=== PATIENT | female | born 1980 | race Caucasian/White ===

== ENCOUNTER → 2016-11-25 | Outpatient (CLI) | payer BC ==
[~2016-11-25] MED LIST: IBUP-1050 PO; NORGTAB3 PO; PANT40TA PO; POLY335025 PO
--- NOTE | 2016-11-25 15:07 | DIAGNOSTIC IMAGING REPORT ---
LEFT ANKLE MIN 3 VIEWS ROUTINE CLINICAL HISTORY: Left ankle pain following injury. COMPARISON: None FINDINGS: Alignment of left ankle is anatomic. Talar dome is intact. No acute fracture of the distal left tibia or fibula is identified. A 6 mm ossific fragment along the lateral aspect of the distal calcaneus is noted. There is also a punctate ossific fragment along the dorsal aspect of the proximal navicular. IMPRESSION: 1. 6 mm avulsed bone fragment along the lateral distal calcaneus which is likely acute. 2. Tiny age indeterminate avulsion fracture of the dorsal navicular. 3. No acute fracture of the distal left tibia or fibula. Electronically signed by: Jose Grimm M.D. 11/25/2016 3:05 PM Dictated Date/Time: 11/25/2016 3:03 PM
--- NOTE | 2016-11-25 15:09 | DIAGNOSTIC IMAGING REPORT ---
LEFT FOOT MIN 3 VIEWS ROUTINE CLINICAL HISTORY: Left foot pain. TRAUMA COMPARISON: None DISCUSSION: There is a small corticated density projected over the dorsal aspect of the navicular. On the oblique views a corticated density projected lateral to the cuboid. On the AP view, there is a 3 mm density projected adjacent to the anterolateral aspect of the calcaneus. Is unclear whether this reflects an ossicle or tiny chip fracture. Please correlate with the patient's site of pain. There is no conventional radiographic evidence of a Lisfranc fracture IMPRESSION: Chip fracture versus ossicle adjacent to the anterolateral aspect of the calcaneus. Please correlate with the patient's site of pain. Electronically signed by: Dominick Quinn M.D. 11/25/2016 3:07 PM Dictated Date/Time: 11/25/2016 3:04 PM
== END | disposition home or self-care (01) ==
LOC: C.RAD1850 14:49
PROVIDERS: ATTEND Student in an Organized Health Care Education/Training Program
DX: S92.002A Unspecified fracture of left calcaneus, initial encounter for closed fracture (principal); X58.XXXA Exposure to other specified factors, initial encounter

== ENCOUNTER → 2016-12-09 | Outpatient (CLI) | payer BC | END | disposition home or self-care (01) | LOC: C.PAPS 14:18 | PROVIDERS: ATTEND Obstetrics & Gynecology | DX: Z01.419 Encounter for gynecological examination (general) (routine) without abnormal findings (principal) ==

== ENCOUNTER → 2016-12-09 | Outpatient (CLI) | payer BC ==
--- NOTE | 2016-12-09 12:50 | DIAGNOSTIC IMAGING REPORT ---
LEFT FOOT MIN 3 VIEWS CLINICAL HISTORY: Left foot pain. Healing fracture. COMPARISON: 11/25/2016 DISCUSSION: On the lateral view, there is a stable tiny bony density located adjacent the dorsal aspect of the navicular. There is subtle irregularity involving the base the cuboid, a nondisplaced fracture cannot be excluded. There is a small bony fragment which appears to arise from the distal lateral aspect of the calcaneus. IMPRESSION: 1. Suspected small chip fracture arising from the dorsal lateral aspect of the calcaneus 2. Subtle lucency within the proximal aspect of the cuboid. A nondisplaced cuboid fracture cannot be excluded Electronically signed by: Dominick Quinn M.D. 12/09/2016 12:48 PM Dictated Date/Time: 12/09/2016 12:45 PM
== END | disposition home or self-care (01) ==
LOC: C.RDSM 11:13
PROVIDERS: ATTEND Physical Medicine & Rehabilitation Sports Medicine
DX: M79.672 Pain in left foot (principal); R93.7 Abnormal findings on diagnostic imaging of other parts of musculoskeletal system

== ENCOUNTER → 2017-08-02 | Outpatient (CLI) | payer BC ==
--- NOTE | 2017-08-02 17:21 | DIAGNOSTIC IMAGING REPORT ---
LEFT ELBOW 2 VIEWS CLINICAL HISTORY: 37 years-old Female presenting with LEFT ELBOW PAIN. TECHNIQUE: 2 views of the left elbow were obtained. COMPARISON: None. FINDINGS: Diagnostic sensitivity is limited by lateral view only. Elbow joint grossly congruent. No elbow joint effusion. No gross evidence of displaced fracture or malalignment. IMPRESSION: Allowing for the lateral view only, no acute osseous injury of the left elbow is evident. Electronically signed by: Vincent Dhillon M.D. 08/02/2017 5:20 PM Dictated Date/Time: 08/02/2017 5:19 PM
== END | disposition home or self-care (01) ==
LOC: C.RDSM 17:15
PROVIDERS: ATTEND Physician Assistant
DX: M25.522 Pain in left elbow (principal)

== ENCOUNTER → 2017-08-11 | Outpatient (CLI) | payer BC | END | disposition home or self-care (01) | LOC: C.RDSM 13:43 | PROVIDERS: ATTEND Physician Assistant | DX: M25.522 Pain in left elbow (principal) ==

== ENCOUNTER 2018-04-02 14:25 | Emergency (ER) | payer BC ==
[~2018-04-02] VITALS: Ht 165.1 cm; Wt 64.1 kg
[2018-04-02 14:27] VITALS: TEMP 37; Ht 165.1 cm; Wt 64.1 kg
[2018-04-02] MEDS ORDERED: SODIUM CHLORIDE 0.9% 1000ML 1,000 ML IV STA (14:36)
[2018-04-02] MEDS ORDERED: MoRPHine SULFATE 4 MG/ML 1 ML CARP\\VIAL IV STA (14:36)
[2018-04-02] MEDS ORDERED: ONDANSETRON INJ 2 MG/ML 2 ML VIAL IV STA (14:36)
[2018-04-02] MEDS ORDERED: GI COCKTAIL PO STA (14:37)
[2018-04-02] MEDS ORDERED: LIDOCAINE HCL 2% VISC SOLN 20 ML UDC ONE (14:42)
[2018-04-02] MEDS ORDERED: ALUMINUM/MAGNESIUM SUSP 30 ML UDC ONE (14:42)
[2018-04-02 15:16] LABS: EOS % 0.1 %; EOS ABS # 0.01 K/uL (0-0.5); HEMATOCRIT 42.1 % (37-47); HEMOGLOBIN 14.7 g/dL (12.0-16.0); IG# 0.01 K/uL (0.00-0.02); LYMPH % 6.6 %; MEAN CELL VOLUME 91.5 fL (80-100); MEAN CORPUSCULAR HGB CONC 34.9 g/dl (32-36); MEAN PLATELET VOLUME 9.2 fL (7.4-10.4); MONO % 4.3 %; MONO ABS # 0.33 K/uL (0.11-0.59); NEUT % 88.9 %; NEUT ABS # 6.75 K/uL (1.4-6.5); PLATELET COUNT 190 K/uL (130-400); RED CELL DISTRIBUTION WIDTH CV 12.3 % (11.5-14.5); RED CELL DISTRIBUTION WIDTH SD 41.2 fL (36.4-46.3)
--- NOTE | 2018-04-02 15:29 | DIAGNOSTIC IMAGING REPORT ---
BILIARY ULTRASOUND CLINICAL HISTORY: Right upper quadrant abdominal pain COMPARISON STUDY: 04/19/2015 FINDINGS: The pancreas appears sonographically normal. The liver appears sonographically normal. The gallbladder appears sonographically normal. There is no ductal dilatation. The common bile duct measures 2 mm. There is no right-sided hydronephrosis. IMPRESSION: Normal biliary ultrasound. Electronically signed by: Dominick Quinn M.D. 04/02/2018 3:28 PM Dictated Date/Time: 04/02/2018 3:26 PM
[2018-04-02 15:42] LABS: ALBUMIN 3.4 gm/dl (3.4-5.0); ALKALINE PHOSPHATASE 34 U/L (45-117); ALT/SGPT 14 U/L (12-78); AST/SGOT 18 U/L (15-37); BLOOD UREA NITROGEN 16 mg/dl (7-18); CALCIUM 8.3 mg/dl (8.5-10.1); CARBON DIOXIDE 28 mmol/L (21-32); CREATININE 0.79 mg/dl (0.60-1.20); GLUCOSE 86 mg/dl (70-99); LIPASE 83 U/L (73-393); SODIUM 137 mmol/L (136-145); TOTAL PROTEIN 6.7 gm/dl (6.4-8.2)
[2018-04-02 17:08] VITALS: BP 86/62; PULSE 87; O2SAT 97
--- NOTE | 2018-04-02 21:17 | EMERGENCY ROOM VISIT NOTE ---
History Report prepared by Scribe: Sylvie Elizalde Under the Supervision of: Dr. Willi Henderson D.O. First contact with patient: 14:29 Chief Complaint: ABDOMINAL PAIN Stated Complaint: GALLBLADDER PAIN History of Present Illness The patient is a 37 year old female who presents to the Emergency Room with complaints of worsening right sided abdominal pain since last night. She rates her discomfort as a 6/10 in severity. She states the pain radiates around to her lower back. She was also nauseous and vomited last night. She still has both her gallbladder and appendix but notes she has experienced issues with her gallbladder in the past. She saw her Underwriting Consultant this past , and notes she has previously undergone HIDA scans and ultrasounds that have come back unremarkable. She has also tried cutting back on fatty foods to minimize her abdominal discomfort, but admits she ate barbecue chicken and baked beans yesterday. Her LMP was 3 weeks ago and normal. Her last BM was this morning and normal. She does admit to a headache. Pt denies change in vision, fevers, chest pain, shortness of breath, diarrhea, pain with urination, swelling of the legs and melena. She has no history of kidney stones. Source of History: patient Onset: last night Position: abdomen Symptom Intensity: 6/10 Timing: worsening Associated Symptoms: + headache, + nausea, + vomiting, No fevers, No chest pain, No SOB, No melena, No diarrhea, No urinary symptoms Review of Systems See HPI for pertinent positives & negatives. A total of 10 systems reviewed and were otherwise negative. Past Medical & Surgical Medical Problems: (1) GERD (gastroesophageal reflux disease) Social History Smoking Status: Never Smoker Alcohol Use: occasionally Drug Use: none Marital Status: Housing Status: lives with family Occupation Status: employed Current/Historical Medications Scheduled Norgestimate-Ethinyl Estradiol (Tri-Sprintec), 1 TAB PO DAILY Polyethylene Glycol 3350 (Miralax), 1 PKT PO DAILY Scheduled PRN Ibuprofen (Advil), 200-600 MG PO Q4H PRN for Pain Allergies Coded Allergies: Penicillins (Verified Allergy, Unknown, "DON'T REMEMBER REACTION" HAD WHEN YOUNGER, 04/02/18) Physical Exam Vital Signs Date Time Temp Pulse Resp B/P (MAP) Pulse Ox O2 Delivery O2 Flow Rate FiO2 5/19/18 17:08 87 86/62 97 04/02/18 15:47 84 95/54 96 Room Air 04/02/18 14:27 37.0 92 16 102/78 98 Room Air Physical Exam GENERAL: Sitting up in bed, alert, well appearing, well nourished, holding epigastric region, in minimal distress, non-toxic EYE EXAM: normal conjunctiva. OROPHARYNX: no exudate, no erythema, lips, buccal mucosa, and tongue normal and mucous membranes are moist NECK: supple, no nuchal rigidity, no adenopathy, non-tender LUNGS: Clear to auscultation. Normal chest wall mechanics HEART: no murmurs, S1 normal and S2 normal ABDOMEN: abdomen soft, minimal tenderness to palpation in epigastrium/RUQ, normo -active bowel sounds, no masses, no rebound or guarding. BACK: Back is symmetrical on inspection and there is no deformity, no midline tenderness, no CVA tenderness. SKIN: no rashes and no bruising UPPER EXTREMITIES: upper extremities are grossly normal. LOWER EXTREMITIES: No pitting edema. NEURO EXAM: Normal sensorium, cranial nerves II-XII grossly intact, normal speech, no gross weakness of arms, no gross weakness of legs. Gross sensation intact. Medical Decision & Procedures ER Provider Diagnostic Interpretation: Radiology results as stated below per my review and the radiologist's interpretation: BILIARY ULTRASOUND CLINICAL HISTORY: Right upper quadrant abdominal pain COMPARISON STUDY: 04/19/2015 FINDINGS: The pancreas appears sonographically normal. The liver appears sonographically normal. The gallbladder appears sonographically normal. There is no ductal dilatation. The common bile duct measures 2 mm. There is no right-sided hydronephrosis. IMPRESSION: Normal biliary ultrasound. Electronically signed by: Dominick Quinn M.D. 04/02/2018 3:28 PM Laboratory Results 04/02/18 14:50 Red Blood Count 4.60, Mean Corpuscular Volume 91.5, Mean Corpuscular Hemoglobin 32.0, Mean Corpuscular Hemoglobin Concent 34.9, Mean Platelet Volume 9.2, Neutrophils (%) (Auto) 88.9, Lymphocytes (%) (Auto) 6.6, Monocytes (%) (Auto) 4.3, Eosinophils (%) (Auto) 0.1, Basophils (%) (Auto) 0.0, Neutrophils # (Auto) 6.75, Lymphocytes # (Auto) 0.50, Monocytes # (Auto) 0.33, Eosinophils # (Auto) 0.01, Basophils # (Auto) 0.00 04/02/18 14:50 Test 04/02/18 14:50 White Blood Count 7.60 K/uL (4.8-10.8) Red Blood Count 4.60 M/uL (4.2-5.4) Hemoglobin 14.7 g/dL (12.0-16.0) Hematocrit 42.1 % (37-47) Mean Corpuscular Volume 91.5 fL (80-100) Mean Corpuscular Hemoglobin 32.0 pg (25-34) Mean Corpuscular Hemoglobin Concent 34.9 g/dl (32-36) Platelet Count 190 K/uL (130-400) Mean Platelet Volume 9.2 fL (7.4-10.4) Neutrophils (%) (Auto) 88.9 % Lymphocytes (%) (Auto) 6.6 % Monocytes (%) (Auto) 4.3 % Eosinophils (%) (Auto) 0.1 % Basophils (%) (Auto) 0.0 % Neutrophils # (Auto) 6.75 K/uL (1.4-6.5) Lymphocytes # (Auto) 0.50 K/uL (1.2-3.4) Monocytes # (Auto) 0.33 K/uL (0.11-0.59) Eosinophils # (Auto) 0.01 K/uL (0-0.5) Basophils # (Auto) 0.00 K/uL (0-0.2) RDW Standard Deviation 41.2 fL (36.4-46.3) RDW Coefficient of Variation 12.3 % (11.5-14.5) Immature Granulocyte % (Auto) 0.1 % Immature Granulocyte # (Auto) 0.01 K/uL (0.00-0.02) Urine Color YELLOW Urine Appearance CLEAR (CLEAR) Urine pH 6.0 (4.5-7.5) Urine Specific [place] 1.025 (1.000-1.030) Urine Protein NEG (NEG) Urine Glucose (UA) NEG (NEG) Urine Ketones TRACE (NEG) Urine Occult Blood 2+ (NEG) Urine Nitrite NEG (NEG) Urine Bilirubin NEG (NEG) Urine Urobilinogen NEG (NEG) Urine Leukocyte Esterase NEG (NEG) Urine WBC (Auto) 1-5 /hpf (0-5) Urine RBC (Auto) 10-30 /hpf (0-4) Urine Hyaline Casts (Auto) 1-5 /lpf (0-5) Urine Epithelial Cells (Auto) >30 /lpf (0-5) Urine Bacteria (Auto) 1+ (NEG) Urine Test NEG (NEG) Anion Gap 6.0 mmol/L (3-11) Est Creatinine Clear Calc Drug Dose 86.9 ml/min Estimated GFR () 110.1 Estimated GFR (Non- 95.0 BUN/Creatinine Ratio 20.3 (10-20) Calcium Level 8.3 mg/dl (8.5-10.1) Total Bilirubin 0.8 mg/dl (0.2-1) Direct Bilirubin mg/dl (0-0.2) Aspartate Amino Transf (AST/SGOT) 18 U/L (15-37) Alanine Aminotransferase (ALT/SGPT) 14 U/L (12-78) Alkaline Phosphatase 34 U/L (45-117) Troponin I < 0.015 ng/ml (0-0.045) Total Protein 6.7 gm/dl (6.4-8.2) Albumin 3.4 gm/dl (3.4-5.0) Lipase 83 U/L (73-393) Chemistry Specimen Hemolysis Laboratory results per my review. Medications Administered Medications (Trade) Dose Ordered Sig/Barry Route Start Time Stop Time Status Last Admin Dose Admin Sodium Chloride 1,000 ml @ 999 mls/hr Q1H1M STAT IV 04/02/18 14:36 04/02/18 15:36 DC 04/02/18 14:59 999 MLS/HR Ondansetron HCl (Zofran Inj) 4 mg NOW STAT IV 04/02/18 14:36 04/02/18 14:38 DC 04/02/18 14:59 4 MG Lidocaine HCl (Viscous Lidocaine 2% Soln) 20 ml STK-MED ONCE .ROUTE 04/02/18 14:42 04/02/18 14:43 DC 04/02/18 14:59 10 ML Al Hydroxide/Mg Hydroxide (Maalox Susp) 30 ml STK-MED ONCE .ROUTE 04/02/18 14:42 04/02/18 14:43 DC 04/02/18 14:59 30 ML ECG Per My Interpretation Indication: abdominal pain Rate (beats per minute): 81 Rhythm: sinus rhythm Findings: left axis deviation, other (No PVC) ED Course ED COURSE: Vital signs were reviewed and showed normal vital signs The patients medical record was reviewed The above diagnostic studies were performed and reviewed. ED treatments and interventions as stated above. 1431: The patient was evaluated in room A2. A complete history and physical examination was performed. 1436: Zofran 4 mg IV, NSS 1000 ml @ 999 mls/hr IV. 1442: Maalox Susp 30 ml PO, Lidocaine HCl 20 ml PO. 1637: Upon reevaluation, the patient is feeling much better after her GI cocktail. I discussed my findings with the patient and she understands and agrees with the treatment plan. Based on the patients age, coexisting illnesses, exam and lab findings the decision to treat as an outpatient was made. The patient remained stable while under my care. The patient appeared well at the time of discharge. Medical Decision Differential diagnoses includes but is not limited to gastritis, peptic ulcer disease, GERD, gallbladder disease, pancreatitis, small bowel obstruction, acute coronary syndrome, pericarditis, ischemic bowel, irritable bowel disease, irritable bowel syndrome, appendicitis, diverticulitis, malignancy, hernia, urinary tract infection, torsion, /ectopic , perforation, trauma, infectious. Patient is a 35-year-old female who presents the ER for right upper quadrant/ epigastric abdominal pain started last night. She is a history of multiple scopes and for HIDA scans all which were unremarkable. No other exacerbating or remitting factors. CBC along with BMP, LFTs, bilirubin and troponin along with lipase is unremarkable. UA was contaminated with multiple epithelial cells. We will not treat at this time. negative. Ultrasound was unremarkable. She did receive some relief with a GI cocktail but was very mild , but she did not receive significant relief that most with gastritis do. I do question if this is related to gastric emptying versus gallbladder at this time. Recommend following up with PCP and GI as an outpatient. Discussed with Pt concerning signs and symptoms to watch out for. Pt was instructed to follow up with their PCP and discussed with the patient their option to return to the ED at anytime for persistent or worsening symptoms. The appropriate anticipatory guidance and out-patient management, including indications for return to the emergency department, were explained at length to the patient and understood. Medication Reconcilliation Current Medication List: was personally reviewed by me Blood Pressure Screening Patient's blood pressure: Normal blood pressure Blood pressure disposition: Did not require urgent referral Impression Primary Impression: Epigastric abdominal pain Scribe Attestation The scribe's documentation has been prepared under my direction and personally reviewed by me in its entirety. I confirm that the note above accurately reflects all work, treatment, procedures, and medical decision making performed by me. Departure Information Dispostion Home / Self-Care Referrals Izabel Ramirez M.D. (PCP) Patient Instructions Abdominal Pain - [facility], My [facility] Additional Instructions Please follow up with your primary care doctor with in the next 24 hours. Any worsening of your symptoms, please return to the ED immediately. This includes any fevers greater than 100.4, worsening pain, chest pain, shortness breath, persistent nausea, vomiting, unable to eat or drink, or any other concerning signs or symptoms from your standpoint. You were given medications during this visit that will inhibit your ability to drive, operate machinery and work. Please do NOT drive, operate machinery, drink alcohol or work for the next 12hrs.
== END 2018-04-02 17:38 | disposition home or self-care (01) ==
LOC: C.EDB 14:26 → C.EDA 17:38
DX: R10.13 Epigastric pain (principal); R10.11 Right upper quadrant pain; R51 Headache; R11.2 Nausea with vomiting, unspecified; Z88.0 Allergy status to penicillin

== ENCOUNTER → 2018-04-06 | Outpatient (CLI) | payer BC ==
[~2018-04-06] MED LIST changes: -PANT40TA PO
--- NOTE | 2018-04-06 12:59 | DIAGNOSTIC IMAGING REPORT ---
Nuclear gastric emptying study: CLINICAL HISTORY: Epigastric discomfort. COMPARISON STUDY: CT of the abdomen and pelvis April 25, 2015. TECHNIQUE: Following the oral administration of 1.05 mCi of technetium 99m sulfur colloid in egg sandwich and 8 ounces of water, static abdominal images were obtained anteriorly and posteriorly at 0 minutes, 1 hour, 2 hour, and 4 hour time intervals. Gastric emptying was calculated utilizing the geometric mean method. FINDINGS: There is approximately 83% gastric activity remaining at the 1 hour time interval (normal is less than 90%), 621% at the 2 hour time interval (normal is less than 60%), and 3% remaining at the 4 hour time interval (normal is less than 10%). IMPRESSION: Borderline delayed gastric emptying at the 2 hour point. Otherwise, normal study. Electronically signed by: Jose Grimm M.D. 04/06/2018 12:57 PM Dictated Date/Time: 04/06/2018 12:55 PM
== END | disposition home or self-care (01) ==
LOC: C.NUCL 08:16
PROVIDERS: ATTEND Physician Assistant
DX: R10.13 Epigastric pain (principal)